=== PATIENT | female | born 1995 | race Caucasian/White ===

== ENCOUNTER 2017-08-01 08:33 | Emergency (ER) | payer OTHER ==
[2017-08-01 08:56] VITALS: BP 133/75; PULSE 94; TEMP 98.9; BMI 22.8
[2017-08-01] MEDS ORDERED: IBUPROFEN 600 MG TABLET (FP) PO ONE (09:22)
--- NOTE | 2017-08-01 09:32 | PDOC ---
History of Present Illness - General Chief Complaint: Cold Symptoms Stated Complaint: FEVER Time Seen by Provider: 08/01/17 08:58 History Source: Patient Exam Limitations: No Limitations - History of Present Illness Initial Comments: 08/01/17 09:28 22 yr female with 3 days sore throat cough headache no fever or chills. non smoker no PMHX Severity: Yes: mild Past History - Past History Allergies/Adverse Reactions: Allergies No Known Allergies Allergy (Verified 08/01/17 08:53) Home Medications: Ambulatory Orders Ibuprofen 600 mg PO QID PRN #28 tablet 08/01/17 General Medical History: Yes: no pertinent history Immunization Status Up to Date: Yes Tetanus Status: Less than 5 years - Family History Significant Family History: Yes: no pertinent family hx - Suicide History Have you every been bullyed?: No - Social History Smoking History: No Smoking Status: Never smoked Number of Cigarettes Smoked Per Day: 0 Review of Systems - Review of Systems Able to Perform ROS?: Yes Is the patient limited Citizen Of [place] proficient: No Constitutional: No: Symptoms Reported HEENTM: Yes: Symptoms Reported, Nose Congestion, Throat Pain Respiratory: Yes: Cough. No: Wheezing *Physical Exam - Vital Signs Last Vital Signs Temp Pulse Resp BP Pulse Ox 98.9 F 94 H 19 133/75 97 08/01/17 08:53 08/01/17 08:53 08/01/17 08:53 08/01/17 08:53 08/01/17 08:53 - Physical Exam General Appearance: Yes: Nourished, Appropriately Dressed HEENT: positive: EOMI, PARVEEN, Nasal Congestion Neck: positive: Supple. negative: Lymphadenopathy (R), Lymphadenopathy (L) Respiratory/Chest: positive: Lungs Clear, Normal Breath Sounds. negative: Wheezing Cardiovascular: positive: Regular Rhythm, Regular Rate Musculoskeletal: positive: Normal Inspection Extremity: positive: Normal Capillary Refill, Normal Inspection, Normal Range of Motion Integumentary: positive: Normal Color, Dry, Warm Neurologic: positive: auto research engineer II-XII NML intact, Fully Oriented, Alert, Normal Mood/ Affect, Normal Response, Motor Strength 5/5 Medical Decision Making - Medical Decision Making 08/01/17 09:29 cc: sore throat cough headache nasal congestion no fever no chills no diff breathing taking otc meds at home works as information systems security officer at [employer] will check rapid strep motrin now *DC/Admit/Observation/Transfer Diagnosis at time of Disposition: Pharyngitis Qualifiers: Pharyngitis/tonsillitis etiology: unspecified etiology Qualified Code(s): J02.9 - Acute pharyngitis, unspecified - Discharge Dispostion Disposition: HOME Condition at time of disposition: Good - Prescriptions Prescriptions: Ibuprofen 600 mg PO QID PRN #28 tablet PRN Reason: Pain - Referrals Referrals: Haleigh Sanford [Primary Care Provider] - - Patient Instructions Additional Instructions: drink pleanty of fluids to stay well hydrated increase vitamin C and Zinc intake take ibuprofen 600mg every 6hrs for pain gargle with warm salt water 4-5 times a day use Vicks Vapor rub to throat chest at bedtime follow with your doctor for any persisting symptoms return to ER if worse - Post Discharge Activity
== END 2017-08-01 11:05 | disposition home or self-care (01) ==
LOC: JERFT 08:33
DX: J02.9 Acute pharyngitis, unspecified (principal)
CPT/HCPCS: 87070; 87430; 99281-25